=== PATIENT | female | born 1970 | race African-American/Black ===

== ENCOUNTER 2024-05-02 14:29 | Emergency (ER) | payer OTHER, SELFPAY ==
[~2024-05-02 14:29] MED LIST: Iopamidol 300 61% 100 ML VIAL FS ONE
[2024-05-02] MEDS ORDERED: Acetaminophen 500 MG TAB ONE (15:18)
[2024-05-02] MEDS ORDERED: Ketorolac Tromethamine 30 MG (1 mL) VIAL ONE (15:18)
[2024-05-02 15:26] LABS: #Basophils 0.02 10x3/uL (0.0-0.2); #Eosinphils 0.18 10x3/uL (0.0-0.5); #Monocytes 0.37 10x3/uL (0.0-1.1); #Neutrophils 3.88 10x3/uL (1.5-8.4); %Basophils 0.3 % (0.0-2.0); %Eosinophils 2.6 % (0.0-6.0); %Lymphocytes 34.4 % (18.0-47.0); %Monocytes 5.4 % (0.0-10.0); Hematocrit 39.3 % (34.9-44.5); Hemoglobin 12.5 g/dL (12.0-15.5); Mean Corpuscular HGB CONC 31.8 g/dL (32.0-36.0); Mean Corpuscular Hemoglobin 26.4 pg (27.0-33.0); Mean Corpuscular Volume 83.1 fL (81.6-98.3); Mean Platelet Volume 10.5 fL (7.4-10.4); Platelet Count 450 10x3/uL (150-450); Red Blood Cell (RBC) Count 4.73 10x6/uL (3.90-5.03); White Blood Cell (WBC) Count 6.8 10x3/uL (3.5-10.5)
[2024-05-02 15:42] LABS: ALT (SGPT) 25 U/L (8-55); AST (SGOT) 21 U/L (5-34); Albumin 3.9 g/dL (3.5-5.0); Alkaline Phosphatase 91 U/L (40-110); Anion Gap 15 mmol/L (10-20); BUN (Urea Nitrogen) 9 mg/dL (9.8-20.1); Bilirubin, Total 0.9 mg/dL (0.2-1.2); Calc. Creatinine Clearance 0 mL/min (70-130); Calcium 9.3 mg/dL (7.8-10.44); Carbon Dioxide 24 mmol/L (22-29); Chloride 104 mmol/L (98-107); Estimated GFR 99; Globulin 4.6 g/dL (2.4-3.5); Glucose 83 mg/dL (70-105); Lipase 32 U/L (8-78); Potassium 3.7 mmol/L (3.5-5.1); Protein, Total 8.5 g/dL (6.0-8.3); Sodium 139 mmol/L (136-145)
[2024-05-02 15:48] LABS: Troponin I Less than 0.010 ng/mL (< 0.028)
[2024-05-02 16:48] LABS: BHCG - Serum Negative (NEGATIVE); Pregs Control Background? CLEAR/WHITE (CLR/WHITE); Pregs Control Bar Appear? YES (CONTROL BAR)
== END 2024-05-02 17:27 | disposition home or self-care (01) ==
LOC: CSHERS 14:29
DX: D25.9 Leiomyoma of uterus, unspecified (principal); N83.202 Unspecified ovarian cyst, left side; M25.551 Pain in right hip; R10.31 Right lower quadrant pain; I10 Essential (primary) hypertension; E11.9 Type 2 diabetes mellitus without complications
CPT/HCPCS: 74177; 80053; 83690; 84484; 84703; 85025; 93005; 96374; J1885; Q9967